=== PATIENT | female | born 1955 | race Caucasian/White ===

== ENCOUNTER 2019-11-18 06:04 | Day surgery (SDC) | payer BC ==
[2019-11-18] MEDS ORDERED: fentaNYL 100 MCG/2 ML SDV IV ONE ×3 (06:05→07:00)
[2019-11-18] MEDS ORDERED: Midazolam 1 MG/ML 2 ML SDV IV ONE ×3 (06:05→07:02)
[2019-11-18] MEDS ORDERED: Dextrose 5%-0.45% NaCl 1,000 ML IV SCH (06:30)
[2019-11-18] MEDS ORDERED: fentaNYL 100 MCG/2 ML SDV ONE (06:35)
[2019-11-18] MEDS ORDERED: Midazolam 1 MG/ML 2 ML SDV ONE (06:35)
--- NOTE | 2019-11-18 08:09 | OR ---
DATE: 11/18/2019 PROCEDURES: Esophagogastroduodenoscopy, narrow-band imaging, and multiple pinch biopsies. INSTRUMENT USED: GIF-HQ190 Olympus video panendoscope. PREMEDICATIONS: No oral or topical anesthesia used. Fentanyl 100 mcg intravenous, Versed 2 mg intravenous. Procedure was done under pulse oximetry, BP recording, and hall monitor. INDICATION: Diabetic patient with no previous gastric leiomyosarcoma resection with persistent upper abdominal pain, dyspepsia, and intermittent diarrhea unexplained and not responsive to medical measures on numerous medications Esophagogastroduodenoscopy is performed for detection of any active erosive lesions, Bender esophagus and/or malignancy also under consideration, H pylori status to be determined, small bowel biopsies to be obtained for any evidence of celiac disease, endoscopic hemostasis therapy if needed. The scope was passed with ease. Adequate visualization of the esophagus was made from proximal to distal areas. No upper esophageal lesions were identified. No distal esophageal stricture. No uphill or downhill esophageal varices. No Leila-Paulson tear. No evidence of erosive esophagitis by Bureau criteria. No esophageal polyp or tumor mass identified. Sliding hiatal hernia was noted. No proximal gastric varices noted. Gastric fundus examination by retroflexion showed no polypoid lesions. No gastric ulcer, malignant mass, or vascular ectasia identified. In the post bulbar area, less than 1 cm sized benign-appearing submucosal lesion was noted, NBI views were obtained, multiple pinch biopsies were obtained and sent for histopathology. Visualized second part of the duodenum otherwise was unremarkable. Multiple pinch biopsies, 4 in number were taken from different areas of the second part of the duodenum and tissues were also obtained from the duodenal bulb at 9 and 12 o'clock positions and sent for any evidence of celiac disease as well as amyloidosis. Multiple pinch biopsies were also taken from the gastric antrum and proximal body and sent for PyloriTek test for H pylori and histopathology. No bleeding was noted from any of the visualized areas at the completion of examination. Photographs were taken of the duodenal bulb, gastric antrum, fundus and distal esophagus. IMPRESSION: 1. Sliding hiatal hernia. 2. Duodenal benign submucosal lesion. The patient tolerated the procedure well. [facility] /[id number]
[2019-11-18 11:31] VITALS: BP 102/76; PULSE 65
== END 2019-11-18 10:00 | disposition home or self-care (01) ==
LOC: DL.ENDO 06:04
PROVIDERS: ATTEND Internal Medicine Gastroenterology
DX: K29.50 Unspecified chronic gastritis without bleeding (principal); D17.5 Benign lipomatous neoplasm of intra-abdominal organs; K44.9 Diaphragmatic hernia without obstruction or gangrene; E11.9 Type 2 diabetes mellitus without complications; I10 Essential (primary) hypertension; K21.9 Gastro-esophageal reflux disease without esophagitis; M19.90 Unspecified osteoarthritis, unspecified site; E78.5 Hyperlipidemia, unspecified; F32.9 Major depressive disorder, single episode, unspecified; Z98.890 Other specified postprocedural states; Z96.659 Presence of unspecified artificial knee joint; Z95.0 Presence of cardiac pacemaker
CPT/HCPCS: 43239; 87077; J2250; J3010; J7042

== ENCOUNTER 2019-12-06 05:18 | Day surgery (SDC) | payer BC ==
[~2019-12-06 05:18] MED LIST: Dextrose 5%-0.45% NaCl 1,000 ML IV SCH; Sodium Chloride 0.9% 10 ML Syringe FLUSH PRN
[2019-12-06] MEDS ORDERED: fentaNYL 100 MCG/2 ML SDV IV ONE ×3 (05:19→06:36)
[2019-12-06] MEDS ORDERED: Sodium Chloride 0.9% 10 ML Syringe FLUSH PRN (06:00)
[2019-12-06] MEDS ORDERED: Dextrose 5%-0.45% NaCl 1,000 ML IV SCH (06:00)
[2019-12-06] MEDS ORDERED: fentaNYL 100 MCG/2 ML SDV ONE (06:12)
[2019-12-06] MEDS ORDERED: Midazolam 1 MG/ML 2 ML SDV ONE (06:12)
[2019-12-06] MEDS ORDERED: Midazolam 1 MG/ML 2 ML SDV IV ONE ×5 (06:36→06:42)
--- NOTE | 2019-12-06 08:26 | OR ---
DATE: 12/06/2019 PROCEDURE: Total colonoscopy and multiple pinch biopsies. INSTRUMENT USED: PCF-H190DL Olympus video colonoscope. PREMEDICATIONS: Fentanyl 100 mcg intravenous, Versed 3 mg intravenous, nasal O2 cannula. The procedure was done under pulse oximetry, BP recording, and monitoring engineer. INDICATION: The patient with persistent diarrhea unexplained and not responsive to medical measures. Colonoscopic examination is done for detection of any polypoid lesions and removal, biopsies to be obtained for microscopic colitis, endoscopic hemostasis therapy if needed. DESCRIPTION OF PROCEDURE: Initial rectal exam was unremarkable. Rigid anoscopy was normal. The colonoscope was passed with relative ease up to the ileocecal area. Photographs were taken of the normal-appearing cecum identified by thin- lipped ileocecal folds. No bleeding was noted from any of the visualized areas at the commencement of the examination. The bowel preparation was found to be inadequate due to the presence of large amount of liquid and solid material that had to be aspirated. [place] scale 1 in all the regions, total score 3. Terminal ileum not visualized due to thin-lipped ileocecal fold and large amounts of stool around preventing advancement of the tip of the scope proximally. No stricture. No vascular ectasia. No large isolated ulcerations seen. No evidence of diffuse inflammatory bowel disease in the form of friability, contact bleeding, or ulcerations. No polyp or tumor mass identified. Probing the proximal sides of folds and flexures using adequate distention and clearing up the stool material, withdrawal of the scope was made. Multiple pinch biopsies were taken from the normal-appearing mucosa of the mid transverse colon, mid descending colon, and rectosigmoid, and sent for any histopathologic evidence of microscopic colitis. No bleeding was noted from any of the visualized areas at the completion of examination. IMPRESSION: Normal study. The patient tolerated the procedure well. [facility] /[id number]
[2019-12-06 11:06] VITALS: BP 115/55; PULSE 69
== END 2019-12-06 09:20 | disposition home or self-care (01) ==
LOC: DL.ENDO 05:18
PROVIDERS: ATTEND Internal Medicine Gastroenterology
DX: R19.7 Diarrhea, unspecified (principal); E11.9 Type 2 diabetes mellitus without complications; I10 Essential (primary) hypertension; M19.90 Unspecified osteoarthritis, unspecified site; D17.5 Benign lipomatous neoplasm of intra-abdominal organs; K21.9 Gastro-esophageal reflux disease without esophagitis; E78.5 Hyperlipidemia, unspecified; Z95.0 Presence of cardiac pacemaker; Z98.890 Other specified postprocedural states; Z96.659 Presence of unspecified artificial knee joint
CPT/HCPCS: 45380; J2250; J3010; J7042

== ENCOUNTER 2020-02-21 05:52 | Day surgery (SDC) | payer BC ==
[2020-02-21] MEDS ORDERED: fentaNYL 100 MCG/2 ML SDV IV ONE ×4 (05:53→07:20)
[2020-02-21] MEDS ORDERED: Midazolam 1 MG/ML 2 ML SDV IV ONE ×7 (05:53→07:19)
[2020-02-21] MEDS ORDERED: Dextrose 5%-0.45% NaCl 1,000 ML IV SCH (06:00)
[2020-02-21] MEDS ORDERED: Sodium Chloride 0.9% 10 ML Syringe FLUSH PRN (06:00)
[2020-02-21] MEDS ORDERED: Midazolam 1 MG/ML 2 ML SDV ONE (06:16)
[2020-02-21] MEDS ORDERED: fentaNYL 100 MCG/2 ML SDV ONE (06:16)
--- NOTE | 2020-02-21 09:08 | OR ---
DATE: 02/21/2020 PROCEDURE: Total colonoscopy, terminal ileoscopy, NBI, multiple cold snare polypectomies, and biopsies. INSTRUMENT USED: PCF-H190DL Olympus video colonoscope. PREMEDICATIONS: Fentanyl 125 mcg intravenous, Versed 4 mg intravenous. Nasal O2 cannula. The procedure was done under pulse oximetry, BP recording, and manufacturing helper. INDICATION: Diabetic patient on multiple medications with chronic diarrhea, unexplained. Previous inadequate study due to the presence of large amount of fecal material, status post gastric surgery, colonoscopic examination is done for detection of any polypoid lesions and removal, biopsies to be obtained from the terminal ileum, endoscopic hemostasis therapy if needed. DESCRIPTION OF PROCEDURE: Initial rectal exam was unremarkable. Rigid anoscopy was normal. The colonoscope was passed up to and beyond the ileocecal junction to visualize normal-appearing terminal ileum, NBI views were obtained, photographs were taken. Pinch biopsy was taken and sent for histopathology. The examination was a bit prolonged due to abdominal adhesions. No bleeding was noted from any of the visualized areas at the commencement of the examination. The bowel preparation was found to be adequate, Gilbert Scale 2 right colon, 3 in transverse and descending colon, total score 8. No stricture. No vascular ectasia. No large isolated ulcerations seen. No evidence of diffuse inflammatory bowel disease in the form of friability, contact bleeding, or ulcerations. Photographs were taken of the cecum showing 5 mm sized polyp, cold snare polypectomy was done, the tissue was retrieved and sent for histopathology. In the proximal ascending colon another 5 mm sized polyp was noted, cold snare polypectomy was done, the tissue was retrieved and sent for histopathology. Probing the proximal sides of folds and flexures using adequate distention and clearing up the stool material, withdrawal of the scope was made. No bleeding was noted from any of the visualized areas at the completion of examination. IMPRESSION: Multiple colonic polyps. The patient tolerated the procedure well. [facility] /[id number]
[2020-02-21 13:55] VITALS: BP 114/54; PULSE 69
== END 2020-02-21 10:00 | disposition home or self-care (01) ==
LOC: DL.ENDO 05:52
PROVIDERS: ATTEND Internal Medicine Gastroenterology
DX: D12.0 Benign neoplasm of cecum (principal); D12.2 Benign neoplasm of ascending colon; K52.9 Noninfective gastroenteritis and colitis, unspecified; E11.9 Type 2 diabetes mellitus without complications; I10 Essential (primary) hypertension; F32.9 Major depressive disorder, single episode, unspecified; M19.90 Unspecified osteoarthritis, unspecified site; E78.5 Hyperlipidemia, unspecified; Z98.890 Other specified postprocedural states; Z79.899 Other long term (current) drug therapy; Z79.4 Long term (current) use of insulin
CPT/HCPCS: 45385; J2250; J3010; J7042